=== PATIENT | female | born 1935 | race Caucasian/White ===

== ENCOUNTER 2019-05-04 10:25 | Emergency (ER) | payer BC ==
--- NOTE | 2019-05-04 11:12 | Emergency Department Record ---
History of Present Illness - General Chief Complaint: Hypertension Stated Complaint: HIGH BLOOD PRESSURE Time Seen by Provider: 05/04/19 10:59 Source: Patient Mode of Arrival: Ambulatory Limitations: No limitations - History of Present Illness Initial Comments: 83 yo female presents with concern about her blood pressure. She reports she has been working with Dr Coats regarding her medications over several months due to side effects. Over the last week her blood pressure has been elevated at home. She keeps a BP journal. Systolic BP has been 127 to 210. Her diastolic has been 70 to 104. She feels a tingle in her head, occasional headache, and felt off balance this morning. No chest pain or shortness of breath. No leg pain or edema. No vision changes. No speech changes. No coordination changes with arms, hands, or leg movements. She called her doctor today and was directed to the ED. She has noticed 2 days of urinary frequency. -: Days(s) Timing: Gradual onset Description: Off-balance History of Same: No History of Trauma: No Severity: Mild Improves With: Nothing Worsens With: Nothing Associated Symptoms: Denies other symptoms - [place] Coma Scale Eye Response: (4) Open spontaneously Motor Response: (6) Obeys commands Verbal Response: (5) Oriented [place] Total: 15 - Related Data Home Medications Medication Instructions Recorded Confirmed Last Taken Cholecalciferol (Vitamin D3) 50 mcg PO QPM 05/04/19 05/04/19 Unknown [Vitamin D3] Escitalopram Oxalate [Lexapro] 20 mg PO QAM 05/04/19 05/04/19 Unknown Guaifenesin [Mucinex] 600 mg PO BID 05/04/19 05/04/19 Unknown Meloxicam 15 mg PO QAM 05/04/19 05/04/19 Unknown Previous Rx's Medication Instructions Recorded Amlodipine Besylate [Norvasc] 5 mg PO DAILY #30 tab 05/04/19 Allergies Allergy/AdvReac Type Severity Reaction Status Date / Time Tetanus Vaccines and Toxoid AdvReac Severe weakness Verified 05/04/19 10:39 Travel Screening - Travel/Exposure Within Last 30 Days Have you traveled within the last 30 days?: No Review of Systems Constitutional: Denies: Chills, Fever, Malaise, Weakness Eyes: Denies: Eye discharge, Photophobia ENT: Denies: Congestion, Ear pain, Epistaxis, Throat pain Respiratory: Denies: Cough, Dyspnea, Hemoptysis, Wheezes Cardiovascular: Denies: Chest pain, Palpitations, Syncope Endocrine: Denies: Fatigue, Polydipsia, Polyuria Gastrointestinal: Denies: Abdominal pain, Diarrhea, Nausea, Vomiting Genitourinary: Reports: Frequency, Urgency. Denies: Dysuria Musculoskeletal: Denies: Arthralgia, Back pain, Myalgia, Neck pain Skin: Denies: Bruising, Change in color, Rash Neurological: Reports: Abnormal gait (off balance), Headache, Vertigo. Denies: Confusion, Numbness, Paresthesias, Tingling, Tremors, Weakness Psychiatric: Denies: Anxiety Hematological/Lymphatic: Denies: Easy bleeding, Easy bruising Past Medical History - SOCIAL HISTORY Smoking Status: Never smoker Alcohol Use: None Drug Use: None - RESPIRATORY Hx Respiratory Disorders: No - CARDIOVASCULAR Hx Cardio Disorders: Yes Hx Hypertension: Yes Hx Irregular Heartbeat: Yes (afib) Comment:: high chloesterol - NEURO Hx Neuro Disorders: No - GI Hx GI Disorders: Yes Comment:: IBS - Hx Genitourinary Disorders: No - ENDOCRINE Hx Endocrine Disorders: Yes Hx Thyroid Disease: Yes - MUSCULOSKELETAL Hx Musculoskeletal Disorders: Yes Hx Arthritis: Yes - PSYCH Hx Psych Problems: Yes Hx Anxiety: Yes Hx Depression: Yes - HEMATOLOGY/ONCOLOGY Hx Hematology/Oncology Disorders: No Family Medical History Any Significant Family History?: Yes Family Hx Comment (NOT TO BE USED IN PLACE OF ITEMS BELOW): COPD-daughter Hx Heart Disease: Father Course Vital Signs 05/04/19 10:35 Temperature 97.9 F Pulse Rate 82 Respiratory 20 Rate Blood Pressure 194/119 Pulse Ox 96 - Reevaluation(s) Reevaluation #1: 05/04/19 10:59 EKG #1: 10:38 Rate: 65 Rhythm: sinus with LBBB [place]: L Intervals: LBBB ST segments: CW LBBB Prior: 02/22/19 05/04/19 11:57 The CBC, CMP and UA were reviewed No significant acute abnormality 05/04/19 13:14 The results were reviewed with the patient. I offered OBV to monitor her BP. She adamantly declined. She lives with her son and feels safe at home. Her son supports her decision for DC. I SW her PCP, Dr Coats. We discussed her BP journal and current presentation. She would like to start Norvasc 5mg daily and follow up first of the week with her. I called the specialty clinic as well. She was made a 1:30pm appointment tomorrow with Dr Granados of [facility] 05/04/19 14:58 Medical Decision Making - Lab Data Result diagrams: 05/04/19 10:45 05/04/19 10:45 Disposition Disposition: Discharge Clinical Impression: Hypertension Disposition: Home, Self-Care Condition: (1) Good Instructions: Hypertension (ED) Additional Instructions: You have a follow up appointment her at [facility] with Dr Granados at 1:30pm Review this ER visit and the tests performed with your family doctor first of the week to also recheck your blood pressure Return to the ER for a recheck if worse, any new concerns or questions Take the new prescriptions provided as directed (Norvasc 5mg daily) Prescriptions: Amlodipine Besylate [Norvasc] 5 mg PO DAILY #30 tab Referrals: Tiburcio Granados M.D. [MEDICAL DOCTOR] - [facility] Special[facility] [Provider Group] Forms: Patient Portal Access Time of Disposition: 13:19 Quality - Quality Measures Quality Measures: N/A - Blood Pressure Screening Does Patient Have Any of the Following: Active Dx of HTN Blood Pressure Classification: Hypertensive Reading Systolic Measurement: 183 Diastolic Measurement: 91 Screening for High Blood Pressure: Patient Exclusion, Hx of HTN [[id number]]
[2019-05-04 11:19] LABS: ABSOLUTE NEUTROPHIL COUNT 4.17; BASO % 0.9 % (0-6); GRAN % 62.7 % (47-80); HEMOGLOBIN 13.4 gm/dl (11.6-16.0); LYMPH % 24.8 % (16-45); MEAN CELL VOLUME 92.5 fl (81-97); MEAN CORPUSCULAR HEMOGLOBIN 28.8 pg (27-33); MEAN CORPUSCULAR HGB CONC 31.2 g/dl (32-36); MEAN PLATELET VOLUME 13.1 fl (7.4-10.4); MONO % 9.6 % (0-9); PLATELET COUNT 215 K/uL (130-400); RED BLOOD COUNT 4.65 M/uL (3.80-5.40); WHITE BLOOD COUNT W/O DIFF 6.7 K/uL (4.2-12.2)
[2019-05-04 11:30] LABS: PARTIAL THROMBOPLASTIN TIME 28.4 SECONDS (24.5-39.1); PROTHROMBIN TIME (PATIENT) 10.5 SECONDS (9.5-12.1)
[2019-05-04 11:32] LABS: BILIRUBIN,TOTAL 0.5 mg/dL (0.2-1.0); CREATININE 1.1 mg/dL (0.5-0.9)
[2019-05-04 11:33] LABS: TOTAL PROTEIN 7.5 g/dL (6.6-8.7)
[2019-05-04 11:36] LABS: URINE APPEARANCE CLEAR; URINE BILIRUBIN NEGATIVE (NEGATIVE); URINE BLOOD SMALL (NEGATIVE); URINE COLOR YELLOW; URINE GLUCOSE (UA) NEGATIVE (NEGATIVE); URINE KETONE NEGATIVE (NEGATIVE); URINE LEUKOCYTE ESTERASE NEGATIVE (NEGATIVE); URINE NITRITE NEGATIVE (NEGATIVE); URINE UROBILINOGEN 0.2 E.U./dL (0.20 - 1.00)
[2019-05-04 11:38] LABS: ALB/GLOB RATIO 1.8 (1.1-1.8); ALBUMIN 4.8 g/dL (4.0-5.0)
[2019-05-04 11:42] LABS: URINE EPITHELIAL CELLS RARE (FEW); URINE RBC 0 - 2 (NONE SEEN); URINE WBC NONE SEEN (0-2/hpf)
--- NOTE | 2019-05-04 12:36 | CT SCAN REPORT ---
EXAMINATION: CT Head without IV Contrast EXAM DATE: 05/04/2019 12:26 PM TECHNIQUE: Standard protocol CT images of the head were obtained without intravenous contrast. Unger l and sagittal reconstructed images were created. INDICATION: dizziness COMPARISON: MRI brain April 03, 2019 HAND DOMINANCE: Unknown. ENCOUNTER: Not applicable FINDINGS: 1. There is no intracranial mass, midline shift, extraaxial fluid collection or hemorrhage. 2. The ventricles, sulci and cisterns are prominent consistent with moderate diffuse cerebral atroph y.. 3. Moderate areas of low-attenuation are seen throughout the periventricular white matter and subcor tical white matter bilaterally consistent with chronic small vessel ischemia. A small chronic lacunar infarcts are seen in the right basal ganglia no loss of contreras-white matter differentiation or or sulc al effacement to indicate acute infarction. 4. No depressed or widely calvarial fracture. Prominent bilateral aerated middle turbinate s or conchal bullosa are noted. Mild deviation of the osseous nasal septum to the right. 5. Bilateral lens replacement. Mild mucosal thickening in the posterior aspect of the left sphenoid sinus. The mastoid air cells are clear. 6. Moderate arterial calcifications are noted. IMPRESSION: 1. No acute intracranial hemorrhage, mass lesion or mass effect. 2. Moderate diffuse cerebral atrophy and chronic small vessel ischemia. Dictated by: Gonzalo Browne MD on 05/04/2019 12:32 PM. .
== END 2019-05-04 13:37 | disposition home or self-care (01) ==
LOC: ER 10:25
DX: I10 Essential (primary) hypertension (principal); I48.91 Unspecified atrial fibrillation; R51 Headache; R20.2 Paresthesia of skin
CPT/HCPCS: 70450; 80053; 81001; 85025; 85610; 85730; 93005; 93010; 99284

== ENCOUNTER 2019-06-24 12:58 | Day surgery (SDC) | payer BC ==
[2019-06-24] MEDS ORDERED: PROPOFOL 10 MG/ML VIAL IV ONE (12:59)
[2019-06-24] MEDS ORDERED: LIDOCAINE 2% MDV (20MG/ML) 20ML VIAL IV ONE (12:59)
[2019-06-24] MEDS ORDERED: FENTANYL PF 100MCG/2ML VIAL IV ONE (12:59)
--- NOTE | 2019-06-25 15:30 | Operative Note ---
OPERATION: ESOPHAGOGASTRODUODENOSCOPY. PREOPERATIVE DIAGNOSIS: Dysphagia. POSTOPERATIVE DIAGNOSIS: Normal upper endoscopy. PROCEDURE: After informed consent was obtained from the patient, she was placed in the left lateral decubitus position in the endoscopy suite, sedated and monitored by the department of anesthesia. A well-lubricated [id number] gastroscope was placed in the posterior oropharynx under direct visualization and passed to the proximal esophagus. The endoscope was advanced through the proximal, mid, and distal esophagus. The GE junction and esophagus were unremarkable. No ulcers, erosions, strictures, varices, or mass lesions were seen. The gastric body, antrum, pylorus, duodenal bulb, and sweep were unremarkable. J-turn views of the proximal stomach revealed no proximal gastric mass lesion. The endoscope was straightened and removed from the patient with no new findings noted. RECOMMENDATIONS: I believe the patient would benefit from a video fluoroscopic swallowing study from the speech therapy department to assess her swallowing function. Particularly, it sounds like she may have some transfer dysphagia which would be better assessed in a functional exam. As always, thank you for allowing me to participate in the healthcare of your patients. ENOCH
== END 2019-06-24 14:25 | disposition home or self-care (01) ==
LOC: HOP 12:58
PROVIDERS: ATTEND Internal Medicine Gastroenterology
DX: R10.13 Epigastric pain (principal); I10 Essential (primary) hypertension; F41.8 Other specified anxiety disorders; E03.9 Hypothyroidism, unspecified; E78.00 Pure hypercholesterolemia, unspecified; I48.91 Unspecified atrial fibrillation; Z79.01 Long term (current) use of anticoagulants